=== PATIENT | female | born 1950 | race Caucasian/White ===

== ENCOUNTER 2018-09-16 21:22 | Inpatient (IN) | payer OTHER ==
[~2018-09-16] VITALS: Ht 157.5 cm; Wt 51.3 kg
[2018-09-16 21:34] VITALS: BP_SYST 129
[2018-09-16] MEDS ORDERED: LISI-209 PO (21:58)
[2018-09-16] MEDS ORDERED: CARV12.548 PO (21:58)
[2018-09-16] MEDS ORDERED: FURO-150 PO (21:58)
[2018-09-16] MEDS ORDERED: ASPI-1153 PO (21:58)
[2018-09-16] MEDS ORDERED: SIMV20TA2 PO (21:58)
[2018-09-16] MEDS ORDERED: ALEN10TA6 PO (21:58)
[2018-09-16 22:27] LABS: BASOPHILS # (AUTO) 0.1 K/uL (0.0-0.2); BASOPHILS % (AUTO) 1.2 % (0.0-2.0); EOSINOPHILS # (AUTO) 0.2 K/uL (0.0-0.4); EOSINOPHILS % (AUTO) 3.6 % (0.0-4.0); HEMATOCRIT 34.6 % (36-48); HEMOGLOBIN 11.6 g/dL (12.0-16.0); LYMPHOCYTES # (AUTO) 0.9 K/uL (1.0-5.5); LYMPHOCYTES % (AUTO) 12.9 % (20.5-51.5); MEAN CORPUSCULAR HEMOGLOBIN 33 pg (27-31); MEAN CORPUSCULAR HGB CONC 34 % (32-36); MEAN CORPUSCULAR VOLUME 98 fL (79.0-98.0); MONOCYTES # (AUTO) 0.5 K/uL (0.0-1.0); NEUTROPHILS % (AUTO) 74.3 % (40.0-70.0); PLATELET COUNT (AUTO) 154 K/uL (130-430); RED BLOOD CELL COUNT(AUTO) 3.53 MIL/uL (4.2-6.2); RED CELL DISTRIBUTION WIDTH 13.3 % (9.0-15.0); WHITE BLOOD COUNT (AUTO) 6.8 K/uL (4.8-10.8)
[2018-09-16 22:31] LABS: ALBUMIN 3.4 g/dL (3.4-4.8); CALCIUM 9.3 mg/dL (8.4-11.0); CREATININE 0.82 mg/dL (0.55-1.30); POTASSIUM 3.6 mmol/L (3.5-5.1); TOTAL BILIRUBIN 0.4 mg/dL (0.0-1.0)
[2018-09-16 22:33] LABS: INR 1.1 (0.8-1.2); PROTHROMBIN TIME 10.8 SECS (9.5-12.5)
[2018-09-16] MEDS ORDERED: MORPHINE 4 MG/ML INJ. SYRINGE IVP ONE (23:30)
[2018-09-16] MEDS ORDERED: NITROGLYCERIN 1 INCH (GM) OINT. TP ONE (23:30)
[2018-09-17] MEDS ORDERED: IOHEXOL 350 mgI/mL, 150 ML INFUS..BTL IV ONE (00:08)
[2018-09-17] MEDS ORDERED: ASPIRIN 81 MG TAB.CHEW PO ONE (01:45)
[2018-09-17] MEDS ORDERED: NITROGLYCERIN 0.4 MG TAB.SUBL SL ONE (01:45)
[2018-09-17] MEDS ORDERED: NS 500 ML IV ONE (01:45)
[2018-09-17 02:38] VITALS: BP_SYST 105
[2018-09-17] MEDS ORDERED: NITROGLYCERIN 0.4 MG TAB.SUBL SL PRN (03:30)
[2018-09-17 08:00] VITALS: BP_SYST 118
[2018-09-17] MEDS ORDERED: LISINOPRIL 5 MG TABLET PO ONE (10:15)
[2018-09-17] MEDS ORDERED: ASPIRIN 81 MG TABLET(ECOTRIN) PO ONE (10:15)
[2018-09-17] MEDS ORDERED: CARVEDILOL 12.5 MG TABLET (COREG) PO ONE (10:15)
[2018-09-17] MEDS ORDERED: FUROSEMIDE 20 MG TABLET PO ONE (10:15)
[2018-09-17 12:45] VITALS: BP_SYST 107
[2018-09-17] MEDS: ACETAMINOPHEN 325 MG TABLET PO PRN ×2 (15:15→21:45)
[2018-09-17] MEDS ORDERED: ONDANSETRON HCL 4 MG/2 ML VIAL IM PRN (15:15)
[2018-09-17 16:06] VITALS: BP_SYST 110
[2018-09-17 19:50] VITALS: BP_SYST 119
[2018-09-17] MEDS: CARVEDILOL 12.5 MG TABLET (COREG) PO SCH (21:38)
[2018-09-17 23:52] VITALS: BP_SYST 106
[2018-09-18 00:14] VITALS: BP_SYST 106
[2018-09-18 06:30] LABS: BASOPHILS # (AUTO) 0.1 K/uL (0.0-0.2); BASOPHILS % (AUTO) 1.6 % (0.0-2.0); EOSINOPHILS # (AUTO) 0.2 K/uL (0.0-0.4); EOSINOPHILS % (AUTO) 4.7 % (0.0-4.0); HEMATOCRIT 35.8 % (36-48); HEMOGLOBIN 12.1 g/dL (12.0-16.0); LYMPHOCYTES # (AUTO) 0.9 K/uL (1.0-5.5); MEAN CORPUSCULAR HEMOGLOBIN 33 pg (27-31); MEAN CORPUSCULAR HGB CONC 34 % (32-36); MEAN CORPUSCULAR VOLUME 98 fL (79.0-98.0); MONOCYTES # (AUTO) 0.6 K/uL (0.0-1.0); MONOCYTES % (AUTO) 12.7 % (1.7-9.3); NEUTROPHILS # (AUTO) 3.1 K/uL (1.8-7.7); PLATELET COUNT (AUTO) 150 K/uL (130-430); RED BLOOD CELL COUNT(AUTO) 3.66 MIL/uL (4.2-6.2); RED CELL DISTRIBUTION WIDTH 13.1 % (9.0-15.0); WHITE BLOOD COUNT (AUTO) 4.9 K/uL (4.8-10.8)
[2018-09-18 06:48] LABS: CALCIUM 8.7 mg/dL (8.4-11.0); CREATININE 0.96 mg/dL (0.55-1.30); POTASSIUM 3.6 mmol/L (3.5-5.1)
[2018-09-18 07:13] LABS: ALBUMIN 3.2 g/dL (3.4-4.8); THYROID STIMULATING HORMONE 0.13 uIu/mL (0.36-3.74); TOTAL BILIRUBIN 0.5 mg/dL (0.0-1.0)
[2018-09-18] MEDS: ACETAMINOPHEN 325 MG TABLET PO PRN ×2 (07:37→15:32)
[2018-09-18 08:00] VITALS: BP_SYST 121
[2018-09-18] MEDS: ASPIRIN 81 MG TABLET(ECOTRIN) PO SCH (08:05)
[2018-09-18] MEDS: CARVEDILOL 12.5 MG TABLET (COREG) PO SCH ×2 (08:05→22:40)
[2018-09-18] MEDS: FUROSEMIDE 20 MG TABLET PO SCH (08:06)
[2018-09-18] MEDS: LISINOPRIL 5 MG TABLET PO SCH (08:06)
[2018-09-18] MEDS: SIMVASTATIN 20 MG TABLET PO SCH (08:06)
[2018-09-18] MEDS ORDERED: FUROSEMIDE 20 MG TABLET PO SCH (09:00)
[2018-09-18] MEDS ORDERED: LEVO112T5 PO (10:33)
[2018-09-18 12:04] VITALS: BP_SYST 111
[2018-09-18 16:11] VITALS: BP_SYST 116
[2018-09-18 20:00] VITALS: BP_SYST 110
[2018-09-19] VITALS: BP_SYST 112
[2018-09-19] MEDS ORDERED: LEVOTHYROXINE SODIUM 0.112 MG TABLET PO SCH ×2 (07:00)
[2018-09-19] MEDS ORDERED: LEVOTHYROXINE SODIUM 0.075 MG TABLET PO SCH (07:00)
[2018-09-19 08:00] VITALS: BP_SYST 114
[2018-09-19] MEDS: FUROSEMIDE 20 MG TABLET PO SCH (08:33)
[2018-09-19] MEDS: LISINOPRIL 5 MG TABLET PO SCH (08:34)
[2018-09-19] MEDS: ASPIRIN 81 MG TABLET(ECOTRIN) PO SCH (08:34)
[2018-09-19] MEDS: CARVEDILOL 12.5 MG TABLET (COREG) PO SCH (08:34)
[2018-09-19] MEDS: ACETAMINOPHEN 325 MG TABLET PO PRN (08:34)
[2018-09-19] MEDS: SIMVASTATIN 20 MG TABLET PO SCH (08:34)
[2018-09-19 12:07] VITALS: BP_SYST 105
[2018-09-19 12:12] VITALS: BP_SYST 105
== END 2018-09-19 13:30 | disposition home or self-care (01) | DRG 313 ==
LOC: SED 21:22 → STU 09-17 01:36
PROVIDERS: ADMIT Internal Medicine; ATTEND Internal Medicine
DX: R07.89 Other chest pain (principal); I50.43 Acute on chronic combined systolic (congestive) and diastolic (congestive) heart failure; I42.0 Dilated cardiomyopathy; I11.0 Hypertensive heart disease with heart failure; E78.5 Hyperlipidemia, unspecified; I48.91 Unspecified atrial fibrillation; D64.9 Anemia, unspecified; E05.90 Thyrotoxicosis, unspecified without thyrotoxic crisis or storm; I49.9 Cardiac arrhythmia, unspecified; Z95.810 Presence of automatic (implantable) cardiac defibrillator; Z79.82 Long term (current) use of aspirin; Z79.899 Other long term (current) drug therapy; Z90.49 Acquired absence of other specified parts of digestive tract
CPT/HCPCS: 36415; 70450-TC; 71045; 71275; 80053; 80061; 83690-TC; 83880; 84443-TC; 84484; 85025; 85379; 85610-TC; 85730-TC; 93005; 93306; 96374; 99291; G0378; J2270; J2405; J7040; Q9967